=== PATIENT | female | born 1955 | race Caucasian/White ===

== ENCOUNTER 2019-08-31 09:36 | Emergency (ER) | payer OTHER ==
[2019-08-31] MEDS ORDERED: ONDANSETRON 4 MG/2 ML VIAL ONE (10:45)
[2019-08-31] MEDS ORDERED: KETOROLAC 30 MG/ML INJ ONE (10:45)
[2019-08-31 10:59] LABS: Basophils % 1.2 % (0-1.3); Hematocrit 39.8 % (36.0-45.0); Lymphocytes % 20.5 % (15.3-44.8); RBC Red Blood Cell Count 4.28 M/uL (3.86-4.86)
[2019-08-31 11:20] LABS: Albumin 3.7 g/dL (3.4-5.0); Bilirubin Direct 0.1 mg/dL (0-0.2); Bilirubin Total 0.5 mg/dL (0.2-1.0); Protein, Total 7.2 g/dL (6.4-8.2)
[2019-08-31 11:36] LABS: Urine Blood 3+ (NEG); Urine Glucose NEGATIVE (NEG); Urine Protein NEGATIVE (NEG); Urine Specific Gravity 1.015 (1.005-1.030)
[2019-08-31 12:34] LABS: Urine Bacteria <20 /HPF (<20); Urine Culture Reflex Order NOT NEEDED; Urine RBC 20-50 /HPF (NONE SEEN); Urine Yeast PRESENT (NONE SEEN)
--- NOTE | 2019-08-31 12:39 | RAD REPORT ---
EXAM DESCRIPTION: CT - Abdomen Pelvis Wo Contrast - 08/31/2019 12:28 pm CLINICAL HISTORY: L flank pain. hematuria. r/o ureterolithiasis COMPARISON: No comparisons TECHNIQUE: Axial [address] imaging of the abdomen and pelvis was performed without IV contrast. No IV contrast was given because of allergy, abnormal renal function, patient refusal or physician re quest. Oral contrast was given. All CT scans are performed using dose optimization technique as appropriate and may include automated exposure control or mA/KV adjustment according to patient size. FINDINGS: No suspicious findings in the lung bases. The liver, spleen and pancreas show no suspicious findings on non-contrast imaging. Gallbladder and b iliary tree are also without suspicious finding. Mild left-sided hydronephrosis is present secondary to a 5 mm stone in the left mid ureter. On a KUB projection this is positioned along the lateral margin L4 body inferior to the transverse process. Pa miguel has additional bilateral nonobstructing calyx calculi and a 10 millimeter parenchymal calcifica tion on the left. Multiple phleboliths are present. No significant adrenal finding. Isodense renal m asses and pyelonephritis cannot be excluded in the absence of IV contrast. No calculus in the contrac magaly urinary bladder. No dilated bowel loops or bowel wall thickening. The appendix is normal. No free air, free fluid or i nflammatory stranding. No hernia, mass or bulky lymphadenopathy. No suspicious bony findings. IMPRESSION: Mild left-sided hydronephrosis secondary to a 5 mm left mid ureter stone. Nonobstructing bilateral calyx and parenchymal calculi. Full assessment is limited is the absence of IV contrast. Pyelonephritis is not excluded on noncontra st imaging.
--- NOTE | 2019-08-31 12:55 | ER ---
Nurse's Notes [facility] Name: Carissa Ewing Age: 63 yrs Sex: Female : 1955 Arrival Date: 08/31/2019 Time: 09:41 Bed 7 Private MD: Edgardo Mcarthur Diagnosis: acute left flank pain;left mid ureter 5mm kidney stone with hydronephrosis;barbara urethritis Presentation: 08/31 09:44 Presenting complaint: Patient states: "Two weeks ago I woke up and I had blood in my urine. I went to my PCP and he told me I had a UTI, he gave me some antibiotics, and it got better, but now I woke up and have extreme back pain, have a little blood in my urine and I'm nauseated.". Transition of care: patient was not received from another setting of care. Onset of symptoms was August 31, 2019. Risk Assessment: Do you want to hurt yourself or someone else? Patient reports no desire to harm self or others. Initial Sepsis Screen: Does the patient meet any 2 criteria? No. Patient's initial sepsis screen is negative. Does the patient have a suspected source of infection? No. Patient's initial sepsis screen is negative. Care prior to arrival: None. 09:44 Method Of Arrival: Ambulatory 09:44 Acuity: SWAPNA 3 ss Historical: - Allergies: 09:47 No Known Allergies; ss - Home Meds: 09:47 losartan 25 mg oral tab 1 tab once daily [Active]; metoprolol tartrate 25 mg Oral tab 1 ss tab once daily [Active]; clopidogrel 75 mg oral tab 1 tab once daily [Active]; metformin 500 mg Oral tab 1 tab 2 times per day [Active]; atorvastatin 40 mg oral tab 1 tab once daily [Active]; aspirin 81 mg Oral TbEC 1 tab once daily [Active]; Tramadol PRN [Active]; - PMHx: 09:47 Hypertension; PRE DIABETIC; ss - PSHx: 09:47 Cardiac Stent; Knee repair; ss - Immunization history:: Adult Immunizations up to date. - Social history:: Smoking status: Patient uses tobacco products, smokes one pack cigarettes per day. - Ebola Screening: : Patient denies exposure to infectious person Patient denies travel to an Ebola-affected area in the 21 days before illness onset. Screenin:57 Abuse screen: Denies threats or abuse. Denies injuries from another. Nutritional hb screening: No deficits noted. Tuberculosis screening: No symptoms or risk factors identified. Fall Risk None identified. Assessment: 10:35 General: Appears in no apparent distress. Behavior is calm, cooperative. Pain: Pain hb currently is 4 out of 10 on a pain scale. Neuro: Level of Consciousness is awake, alert, obeys commands, Oriented to person, place, time, situation. Cardiovascular: Capillary refill < 3 seconds Patient's skin is warm and dry. Respiratory: Airway is patent Respiratory effort is even, unlabored, Respiratory pattern is regular, symmetrical. GI: No signs and/or symptoms were reported involving the gastrointestinal system. : No signs and/or symptoms were reported regarding the genitourinary system. EENT: No signs and/or symptoms were reported regarding the EENT system. Derm: Skin is pink, warm \\T\\ dry. Musculoskeletal: Reports left sided back pain. 12:00 Reassessment: Patient appears in no apparent distress at this time. Patient and/or sg family updated on plan of care and expected duration. Pain level reassessed. Patient is alert, oriented x 3, equal unlabored respirations, skin warm/dry/pink. awaiting results from urine studies at this time. Vital Signs: 09:47 BP 120 / 70; Pulse 85; Resp 15; Temp 98.0(O); Pulse Ox 97% on R/A; Weight 52.16 kg; ss Height 4 ft. 11 in. (149.86 cm); Pain 4/10; 09:47 Body Mass Index 23.23 (52.16 kg, 149.86 cm) ED Course: 09:41 Patient arrived in ED. mr 09:42 Edgardo Mcarthur MD is Private Physician. mr 09:45 Triage completed. ss 09:47 Arm band placed on right wrist. ss 10:20 Dominik Mcghee MD is Attending Physician. wa 10:22 Inserted saline lock: 20 gauge in right antecubital area, using aseptic technique. hb Blood collected. 10:35 Patient has correct armband on for positive identification. Bed in low position. Call hb light in reach. Side rails up X 1. 10:57 Jory Larios, BRITNI is Primary Nurse. hb 12:28 CT Abd/Pelvis - Without Cont (PO Contrast Only) In Process Unspecified. EDMS 12:52 Nitin Bolton MD is Referral Physician. wa 13:15 No provider procedures requiring assistance completed. IV discontinued, intact, hb bleeding controlled, No redness/swelling at site. Pressure dressing applied. Administered Medications: 10:51 Drug: TORadol 30 mg Route: IVP; Site: right antecubital; sg 11:30 Follow up: Response: No adverse reaction hb 10:51 Drug: Zofran 4 mg Route: IVP; Site: right antecubital; sg 11:30 Follow up: Response: No adverse reaction hb 13:19 Drug: DiFLUcan 150 mg Route: PO; ss 13:20 Follow up: Response: Medication administered at discharge. hb Outcome: 12:54 Discharge ordered by . wa 13:15 Discharged to home ambulatory, with family. hb 13:15 Condition: stable 13:15 Discharge instructions given to patient, family, Instructed on discharge instructions, follow up and referral plans. medication usage, Demonstrated understanding of instructions, follow-up care, medications, Prescriptions given X 3. 13:26 Patient left the ED. hb Signatures: Dispatcher [employer] EDMS Mainor Barclay RN BRITNI Crista Choe mr Yue Craig RN RN ss Baxter, Heather, RN RN Dominik Mcghee MD MD wa
--- NOTE | 2019-08-31 12:56 | EDPHYS ---
Physician Documentation [facility] Name: Carissa Ewing Age: 63 yrs Sex: Female : 1955 Arrival Date: 08/31/2019 Time: 09:41 Bed 7 Private MD: Edgardo Mcarthur ED Physician Dominik Mcghee HPI: 08/31 10:42 This 63 yrs old Female presents to ER via Ambulatory with complaints of Back wa Pain, Abdominal Pain. 10:42 The patient presents with pain that is acute, with no known mechanism of injury. The wa symptoms are located in the left low back and flank. Onset: The symptoms/episode began/occurred yesterday. The pain does not radiate. Associated signs and symptoms: Pertinent positives: hematuria, nausea, Pertinent negatives: fever, vomiting. The problem was sustained unknown cause. h/o same 2 weeks ago. given macrobid by her doctor for a dx of UTI. Modifying factors: The patient symptoms are alleviated by nothing, the patient symptoms are aggravated by nothing. Severity of symptoms: At their worst the symptoms were moderate, in the emergency department the symptoms have improved, moderately. The patient has experienced a previous episode, approximately 2 weeks ago. The patient has been recently seen by a physician: the patient's primary care provider, as noted above. Historical: - Allergies: 09:47 No Known Allergies; ss - Home Meds: 09:47 losartan 25 mg oral tab 1 tab once daily [Active]; metoprolol tartrate 25 mg Oral tab 1 ss tab once daily [Active]; clopidogrel 75 mg oral tab 1 tab once daily [Active]; metformin 500 mg Oral tab 1 tab 2 times per day [Active]; atorvastatin 40 mg oral tab 1 tab once daily [Active]; aspirin 81 mg Oral TbEC 1 tab once daily [Active]; Tramadol PRN [Active]; - PMHx: 09:47 Hypertension; PRE DIABETIC; ss - PSHx: :47 Cardiac Stent; Knee repair; ss - Immunization history:: Adult Immunizations up to date. - Social history:: Smoking status: Patient uses tobacco products, smokes one pack cigarettes per day. - Ebola Screening: : Patient denies exposure to infectious person Patient denies travel to an Ebola-affected area in the 21 days before illness onset. ROS: 10:45 Constitutional: Negative for fever, chills, and weight loss, Eyes: Negative for injury, wa pain, redness, and discharge, ENT: Negative for injury, pain, and discharge, Neck: Negative for injury, pain, and swelling, Cardiovascular: Negative for chest pain, palpitations, and edema, Respiratory: Negative for shortness of breath, cough, wheezing, and pleuritic chest pain, MS/Extremity: Negative for injury and deformity, Skin: Negative for injury, rash, and discoloration, Neuro: Negative for headache, weakness, numbness, tingling, and seizure. 10:45 Abdomen/GI: Positive for abdominal pain, nausea, of the left flank, Negative for vomiting, diarrhea. 10:45 Back: Positive for flank pain, on the left, Negative for radiated pain. 10:45 : Positive for hematuria, Negative for urinary frequency, burning with urination, difficulty urinating. 10:45 All other systems are negative. Exam: 10:46 Constitutional: This is a well developed, well nourished patient who is awake, alert, wa and in no acute distress. Head/Face: Normocephalic, atraumatic. Eyes: Pupils equal round and reactive to light, extra-ocular motions intact. Lids and lashes normal. Conjunctiva and sclera are non-icteric and not injected. Cornea within normal limits. Periorbital areas with no swelling, redness, or edema. ENT: Nares patent. No nasal discharge, no septal abnormalities noted. Tympanic membranes are normal and external auditory canals are clear. Oropharynx with no redness, swelling, or masses, exudates, or evidence of obstruction, uvula midline. Mucous membranes moist. Neck: Trachea midline, no thyromegaly or masses palpated, and no cervical lymphadenopathy. Supple, full range of motion without nuchal rigidity, or vertebral point tenderness. No Meningismus. Chest/axilla: Normal chest wall appearance and motion. Nontender with no deformity. No lesions are appreciated. Cardiovascular: Regular rate and rhythm with a normal S1 and S2. No gallops, murmurs, or rubs. Normal PMI, no JVD. No pulse deficits. Respiratory: Lungs have equal breath sounds bilaterally, clear to auscultation and percussion. No rales, rhonchi or wheezes noted. No increased work of breathing, no retractions or nasal flaring. Back: No spinal tenderness. No costovertebral tenderness. Full range of motion. Skin: Warm, dry with normal turgor. Normal color with no rashes, no lesions, and no evidence of cellulitis. MS/ Extremity: Pulses equal, no cyanosis. Neurovascular intact. Full, normal range of motion. Neuro: Awake and alert, GCS 15, oriented to person, place, time, and situation. Cranial nerves II-XII grossly intact. Motor strength 5/5 in all extremities. Sensory grossly intact. Cerebellar exam normal. Normal gait. Psych: Awake, alert, with orientation to person, place and time. Behavior, mood, and affect are within normal limits. 10:46 Abdomen/GI: Inspection: abdomen appears normal, Bowel sounds: normal, in all quadrants, Palpation: mild abdominal tenderness, in the left lower quadrant. Vital Signs: 09:47 BP 120 / 70; Pulse 85; Resp 15; Temp 98.0(O); Pulse Ox 97% on R/A; Weight 52.16 kg; ss Height 4 ft. 11 in. (149.86 cm); Pain 4/10; 09:47 Body Mass Index 23.23 (52.16 kg, 149.86 cm) MDM: 10:20 Patient medically screened. ok 10:47 Differential diagnosis: Pyelonephritis Ureterolithiasis UTI. ok 10:47 Special discussion: suspect ureterolithiasis. will eval to r/o. will treat pain. will wa reassess. 11:47 Data reviewed: vital signs, nurses notes, lab test result(s). Test interpretation: by ok ED physician or midlevel provider: labs noted for decreased GFR at 52. 3 blood in UA. 12:51 Test interpretation: by ED physician or midlevel provider: UA noted for yeast. CT noted wa for L mid ureter 5 mm stone with mild hydroneph.. ED course: pain-free at time of d/c. will treat yeast with a dose of diflucan. will cover with toradol and zofran. flomax for kidney stone. close f/u with urology. 08/31 10:31 Order name: Basic Metabolic Panel; Complete Time: 11:46 ok 08/31 10:31 Order name: CBC with Diff; Complete Time: 11:47 ok 08/31 10:31 Order name: Creatinine for Radiology; Complete Time: 11:46 08/31 10:31 Order name: Hepatic Function; Complete Time: 11:47 08/31 10:31 Order name: Lipase; Complete Time: 11:47 08/31 10:31 Order name: Urine Microscopic Only; Complete Time: 12:42 08/31 10:31 Order name: IV Saline Lock; Complete Time: 10:44 08/31 10:31 Order name: Labs collected and sent; Complete Time: 10:44 08/31 10:31 Order name: Urine Dipstick-Ancillary (obtain specimen); Complete Time: 11:32 08/31 10:42 Order name: CT Abd/Pelvis - Without Cont (PO Contrast Only); Complete Time: 12:42 08/31 11:31 Order name: Urine Dipstick--Ancillary (enter results); Complete Time: 11:46 sp Administered Medications: 10:51 Drug: TORadol 30 mg Route: IVP; Site: right antecubital; sg 11:30 Follow up: Response: No adverse reaction hb 10:51 Drug: Zofran 4 mg Route: IVP; Site: right antecubital; sg 11:30 Follow up: Response: No adverse reaction hb 13:19 Drug: DiFLUcan 150 mg Route: PO; ss 13:20 Follow up: Response: Medication administered at discharge. hb Disposition: 08/31/19 12:54 Discharged to Home. Impression: acute left flank pain, left mid ureter 5mm kidney stone with hydronephrosis, barbara urethritis. - Condition is Stable. - Discharge Instructions: Vaginal Yeast Infection, Adult, Kidney Stones, [id number]. - Prescriptions for Flomax 0.4 mg Oral Capsule, Sust. Release 24 hr - take 1 capsule by ORAL route once daily for 7 days 1/2 hour following the same meal each day; 7 capsule. Zofran 4 mg Oral Tablet - take 1 tablet by ORAL route every 12 hours As needed; 20 tablet. ketorolac 10 mg Oral tablet - take 1 tablet by ORAL route every 8 hours not to exceed 40 mg in 24hrs; 20 tablet. - Work release form, Medication Reconciliation Form, Thank You Letter, Antibiotic Education, Prescription Opioid Use form. - Follow up: Nitin Bolton MD; When: 2 - 3 days; Reason: Recheck today's complaints. - Problem is new. - Symptoms have improved. - Notes: take the medication as needed as prescribed. please follow up with Dr. Bolton, Urologist, for the kidney stone to make sure it passes. return here immediately for severe, intolerable pain Signatures: Dispatcher [employer] EDMainor Durham, RN RN Yue Craig RN RN Jory Larios RN RN [facility] HospitalDominik MD MD wa Corrections: (The following items were deleted from the chart) 13:26 12:54 08/31/2019 12:54 Discharged to Home. Impression: acute left flank pain; left mid hb ureter 5mm kidney stone with hydronephrosis; barbara urethritis. Condition is Stable. Forms are Medication Reconciliation Form, Thank You Letter, Antibiotic Education, Prescription Opioid Use. Follow up: Nitin Bolton; When: 2 - 3 days; Reason: Recheck today's complaints. Problem is new. Symptoms have improved. wa
[2019-08-31] MEDS ORDERED: FLUCONAZOLE 100 MG TAB ONE (13:14)
[2019-08-31 13:46] VITALS: BP 120/70; TEMP 98; O2SAT 97
--- OUTSIDE RECORDS SUMMARY | 2019-09-06 21:02 | XMS REPORT ---
:1955 [facility] Address [address] [place] [address] Care Team Providers Name Role Phone JOSEFA THOMAS Unavailable Unavailable Problems This patient has no known problems. Allergies, Adverse Reactions, Alerts This patient has no known allergies or adverse reactions. Medications This patient has no known medications. Results Test Description Test Time Test Comments Text Results Atomic Results Result Comments CBC (HEMOGRAM ONLY) 2017-08-07 10:43:00 Test Item Value Reference Range Comments WHITE BLOOD CELL COUNT (BEAKER) (test rjjy=313) 9.0 K/ L 3.5-10.5 RED BLOOD CELL COUNT (BEAKER) (test xlwh=459) 3.85 M/ L 3.93-5.22 HEMOGLOBIN (BEAKER) (test ehic=133) 11.8 GM/DL 11.2-15.7 HEMATOCRIT (BEAKER) (test wuxi=529) 36.2 % 34.1-44.9 MEAN CORPUSCULAR VOLUME (BEAKER) (test qene=558) 94.0 fL 79.4-94.8 MEAN CORPUSCULAR HEMOGLOBIN (BEAKER) (test bbsl=127) 30.6 pg 25.6-32.2 MEAN CORPUSCULAR HEMOGLOBIN CONC (BEAKER) (test lxot=403) 32.6 GM/DL 32.2- 35.5 RED CELL DISTRIBUTION WIDTH (BEAKER) (test mptg=106) 13.2 % 11.7-14.4 PLATELET COUNT (BEAKER) (test abbi=260) 319 K/CU MM 150-450 MEAN PLATELET VOLUME (BEAKER) (test xddq=648) 9.4 fL 9.4-12.3 NUCLEATED RED BLOOD CELLS (BEAKER) (test zmce=088) 0 /100 WBC 0-0 [id number] 05:05:00 Test Item Value Reference Range Comments MAGNESIUM (BEAKER) (test uwcd=653) 1.9 mg/dL 1.6-2.6 BASIC METABOLIC [id number] 05:05:00 Test Item Value Reference Range Comments SODIUM (BEAKER) (test 139 meq/L 136-145 pytg=907) POTASSIUM (BEAKER) (test 3.8 meq/L 3.5-5.1 flye=952) CHLORIDE (BEAKER) (test 110 meq/L 98-107 trqy=996) CO2 (BEAKER) (test 23 meq/L 22-29 xpml=564) BLOOD UREA NITROGEN 15 mg/dL 7-21 (BEAKER) (test yczi=431) CREATININE (BEAKER) (test 0.66 mg/dL 0.57-1.25 cxpf=645) GLUCOSE RANDOM (BEAKER) 92 mg/dL 70-105 (test hllb=202) CALCIUM (BEAKER) (test 8.5 mg/dL 8.4-10.2 vkdt=507) EGFR (BEAKER) (test 92 mL/min/1.73 sq m ESTIMATED GFR IS NOT wght=0720) ACCURATE CREATININE CLEARANCE IN PREDICTING GLOMERULAR FILTRATION RATE. ESTIMATED GFR IS NOT APPLICABLE FOR DIALYSIS PATIENTS. CBC (HEMOGRAM ONLY)2017-08-07 04:31:00 Test Item Value Reference Range Comments WHITE BLOOD CELL COUNT (BEAKER) (test hzmm=032) 8.1 K/ L 3.5-10.5 RED BLOOD CELL COUNT (BEAKER) (test csud=990) 3.82 M/ L 3.93-5.22 HEMOGLOBIN (BEAKER) (test jskn=313) 11.5 GM/DL 11.2-15.7 HEMATOCRIT (BEAKER) (test kwpt=203) 36.2 % 34.1-44.9 MEAN CORPUSCULAR VOLUME (BEAKER) (test zjrs=495) 94.8 fL 79.4-94.8 MEAN CORPUSCULAR HEMOGLOBIN (BEAKER) (test 30.1 pg 25.6-32.2 odyk=855) MEAN CORPUSCULAR HEMOGLOBIN CONC (BEAKER) (test 31.8 GM/DL 32.2-35.5 zntu=188) RED CELL DISTRIBUTION WIDTH (BEAKER) (test 13.1 % 11.7-14.4 bkcx=591) PLATELET COUNT (BEAKER) (test ckec=632) 312 K/CU MM 150-450 MEAN PLATELET VOLUME (BEAKER) (test fhpi=179) 9.3 fL 9.4-12.3 NUCLEATED RED BLOOD CELLS (BEAKER) (test 0 /100 WBC 0-0 sfla=194) [id number] 19:27:00 Test Item Value Reference Range Comments ACTIVATED CLOTTING TIME [address] [facility] [id number] (BEAKER) (test uolp=714) [facility] [id number] TROPONIN [id number] 11:56:00 Test Item Value Reference Range Comments TROPONIN I (BEAKER) (test vpqz=743) 0.56 ng/mL 0.00-0.03 Troponin I (TnI) levels must be interpreted in the context of the presenting symptoms and the clinical findings. Elevated TnI levels indicate myocardial damage, but are not specific for ischemic heart disease. Elevated TnI levels are seen in patients with other cardiac conditions (including myocarditis and congestive heart failure), and slight TnI elevations occur in patients with other conditions, including sepsis, renal failure, acidosis, acute neurological disease, and persistent tachyarrhythmia.CREATINE KINASE (CK), TOTAL AND [id number] 11:52:00 Test Item Value Reference Range Comments CREATINE KINASE TOTAL (BEAKER) (test nhly=059) 78 U/L 29-200 CREATINE KINASE-MB (BEAKER) (test vcgq=542) 7.6 ng/mL 0.0-6.6 CREATINE KINASE-MB INDEX (BEAKER) (test lvff=975) 9.7 % CK-MB Reference Range:<6.7 Normal6.7-10.0 Borderline>10.0 [id number] 11:51:00 Test Item Value Reference Range Comments PARTIAL THROMBOPLASTIN TIME (BEAKER) (test 53.4 seconds 22.5-36.0 epns=164) HEMOGLOBIN [id number] 10:51:00 Test Item Value Reference Range Comments HEMOGLOBIN A1C (BEAKER) (test qeym=314) 6.2 % 4.3-6.1 TSH/FREE T4 IF [id number] 05:12:00 Test Item Value Reference Range Comments THYROID STIMULATING HORMONE (BEAKER) (test 2.86 uIU/mL 0.35-4.94 zjwd=831) TROPONIN [id number] 05:08:00 Test Item Value Reference Range Comments TROPONIN I (BEAKER) (test urod=650) 0.74 ng/mL 0.00-0.03 Troponin I (TnI) levels must be interpreted in the context of the presenting symptoms and the clinical findings. Elevated TnI levels indicate myocardial damage, but are not specific for ischemic heart disease. Elevated TnI levels are seen in patients with other cardiac conditions (including myocarditis and congestive heart failure), and slight TnI elevations occur in patients with other conditions, including sepsis, renal failure, acidosis, acute neurological disease, and persistent tachyarrhythmia.CREATINE KINASE (CK), TOTAL AND [id number] 04:46:00 Test Item Value Reference Range Comments CREATINE KINASE TOTAL (BEAKER) (test lxks=298) 90 U/L 29-200 CREATINE KINASE-MB (BEAKER) (test hetn=174) 10.2 ng/mL 0.0-6.6 CREATINE KINASE-MB INDEX (BEAKER) (test qinv=982) 11.3 % CK-MB Reference Range:<6.7 Normal6.7-10.0 Borderline>10.0 [id number] 04:40:00 Test Item Value Reference Range Comments MAGNESIUM (BEAKER) (test cken=560) 2.0 mg/dL 1.6-2.6 BASIC METABOLIC [id number] 04:40:00 Test Item Value Reference Range Comments SODIUM (BEAKER) (test 140 meq/L 136-145 fpgt=874) POTASSIUM (BEAKER) (test 3.9 meq/L 3.5-5.1 tehb=027) CHLORIDE (BEAKER) (test 108 meq/L 98-107 okow=102) CO2 (BEAKER) (test 23 meq/L 22-29 jkkf=530) BLOOD UREA NITROGEN 16 mg/dL 7-21 (BEAKER) (test ymya=443) CREATININE (BEAKER) (test 0.74 mg/dL 0.57-1.25 bumt=985) GLUCOSE RANDOM (BEAKER) 100 mg/dL 70-105 (test kjov=057) CALCIUM (BEAKER) (test 9.2 mg/dL 8.4-10.2 pmsa=127) EGFR (BEAKER) (test 80 mL/min/1.73 sq m ESTIMATED GFR IS NOT slqr=5817) ACCURATE CREATININE CLEARANCE IN PREDICTING GLOMERULAR FILTRATION RATE. ESTIMATED GFR IS NOT APPLICABLE FOR DIALYSIS PATIENTS. [id number] 04:31:00 Test Item Value Reference Range Comments PARTIAL THROMBOPLASTIN TIME (BEAKER) (test 45.2 seconds 22.5-36.0 ebqv=175) CBC (HEMOGRAM ONLY)2017-08-06 04:27:00 Test Item Value Reference Range Comments WHITE BLOOD CELL COUNT (BEAKER) (test mehn=159) 10.3 K/ L 3.5-10.5 RED BLOOD CELL COUNT (BEAKER) (test pzwj=602) 4.37 M/ L 3.93-5.22 HEMOGLOBIN (BEAKER) (test oovb=206) 13.5 GM/DL 11.2-15.7 HEMATOCRIT (BEAKER) (test vyfl=918) 41.0 % 34.1-44.9 MEAN CORPUSCULAR VOLUME (BEAKER) (test vevu=917) 93.8 fL 79.4-94.8 MEAN CORPUSCULAR HEMOGLOBIN (BEAKER) (test 30.9 pg 25.6-32.2 jktf=529) MEAN CORPUSCULAR HEMOGLOBIN CONC (BEAKER) (test 32.9 GM/DL 32.2-35.5 scef=833) RED CELL DISTRIBUTION WIDTH (BEAKER) (test 13.2 % 11.7-14.4 wovn=687) PLATELET COUNT (BEAKER) (test vrra=003) 362 K/CU MM 150-450 MEAN PLATELET VOLUME (BEAKER) (test cbwi=200) 9.2 fL 9.4-12.3 NUCLEATED RED BLOOD CELLS (BEAKER) (test 0 /100 WBC 0-0 hiuh=230) URINALYSIS W/ REFLEX URINE [id number] 00:07:00 Test Item Value Reference Range Comments COLOR (BEAKER) (test zayb=549) Yellow CLARITY (BEAKER) (test avub=582) Clear SPECIFIC GRAVITY UA (BEAKER) (test lbdn=160) 1.014 1.001-1.035 PH UA (BEAKER) (test czvm=748) 5.5 5.0-8.0 PROTEIN UA (BEAKER) (test hqdc=927) Negative Negative GLUCOSE UA (BEAKER) (test rlxz=686) Negative Negative KETONES UA (BEAKER) (test unzd=665) Negative Negative BILIRUBIN UA (BEAKER) (test nypx=017) Negative Negative BLOOD UA (BEAKER) (test yrce=967) Negative Negative NITRITE UA (BEAKER) (test iknc=943) Negative Negative LEUKOCYTE ESTERASE UA (BEAKER) (test aeaj=829) Negative Negative UROBILINOGEN UA (BEAKER) (test wtug=846) 0.2 mg/dL 0.2-1.0 RBC UA (BEAKER) (test wpcw=749) 1 /HPF WBC UA (BEAKER) (test eydw=005) < /HPF BACTERIA (BEAKER) (test eyvb=782) Rare MUCUS (BEAKER) (test deln=5126) Occasional SQUAMOUS EPITHELIAL (BEAKER) (test fcxo=143) < /HPF AMORPHOUS CRYSTALS (BEAKER) (test kbxm=7019) Rare SOURCE(BEAKER) (test ocmx=2854) TROPONIN [id number] 22:06:00 Test Item Value Reference Range Comments TROPONIN I (BEAKER) (test lhdg=567) 0.86 ng/mL 0.00-0.03 Troponin I (TnI) levels must be interpreted in the context of the presenting symptoms and the clinical findings. Elevated TnI levels indicate myocardial damage, but are not specific for ischemic heart disease. Elevated TnI levels are seen in patients with other cardiac conditions (including myocarditis and congestive heart failure), and slight TnI elevations occur in patients with other conditions, including sepsis, renal failure, acidosis, acute neurological disease, and persistent tachyarrhythmia.CREATINE KINASE (CK), TOTAL AND [id number] 22:04:00 Test Item Value Reference Range Comments CREATINE KINASE TOTAL (BEAKER) (test cqdv=821) 103 U/L 29-200 CREATINE KINASE-MB (BEAKER) (test rvve=679) 12.0 ng/mL 0.0-6.6 CREATINE KINASE-MB INDEX (BEAKER) (test erzo=168) 11.7 % CK-MB Reference Range:<6.7 Normal6.7-10.0 Borderline>10.0 [id number] 21:58:00 Test Item Value Reference Range Comments PHOSPHORUS (BEAKER) (test hfem=593) 3.0 mg/dL 2.3-4.7 [id number] 21:58:00 Test Item Value Reference Range Comments MAGNESIUM (BEAKER) (test tycm=581) 2.2 mg/dL 1.6-2.6 COMPREHENSIVE METABOLIC [id number] 21:58:00 Test Item Value Reference Range Comments TOTAL PROTEIN (BEAKER) 7.5 gm/dL 6.0-8.3 (test gfcw=678) ALBUMIN (BEAKER) (test 3.9 g/dL 3.5-5.0 tatx=3221) ALKALINE PHOSPHATASE 80 U/L 40-150 (BEAKER) (test zqvm=806) BILIRUBIN TOTAL (BEAKER) 0.4 mg/dL 0.2-1.2 (test ksst=979) SODIUM (BEAKER) (test 138 meq/L 136-145 ixxl=799) POTASSIUM (BEAKER) (test 4.0 meq/L 3.5-5.1 kxps=585) CHLORIDE (BEAKER) (test 106 meq/L 98-107 dheo=608) CO2 (BEAKER) (test 22 meq/L 22-29 hnmk=279) BLOOD UREA NITROGEN 11 mg/dL 7-21 (BEAKER) (test mipc=980) CREATININE (BEAKER) (test 0.73 mg/dL 0.57-1.25 jsro=304) GLUCOSE RANDOM (BEAKER) 123 mg/dL 70-105 (test vxrx=154) CALCIUM (BEAKER) (test 9.7 mg/dL 8.4-10.2 wjtl=507) AST (SGOT) (BEAKER) (test 19 U/L 5-34 yzat=521) ALT (SGPT) (BEAKER) (test 16 U/L 6-55 dfwo=067) EGFR (BEAKER) (test 82 mL/min/1.73 sq m ESTIMATED GFR IS NOT sxbq=8164) ACCURATE CREATININE CLEARANCE IN PREDICTING GLOMERULAR FILTRATION RATE. ESTIMATED GFR IS NOT APPLICABLE FOR DIALYSIS PATIENTS. BASIC METABOLIC [id number] 21:58:00 Test Item Value Reference Range Comments SODIUM (BEAKER) (test 138 meq/L 136-145 rslb=287) POTASSIUM (BEAKER) (test 4.0 meq/L 3.5-5.1 bpvq=564) CHLORIDE (BEAKER) (test 106 meq/L 98-107 mmnz=927) CO2 (BEAKER) (test 22 meq/L 22-29 vlwa=944) BLOOD UREA NITROGEN 11 mg/dL 7-21 (BEAKER) (test byks=898) CREATININE (BEAKER) (test 0.73 mg/dL 0.57-1.25 zktb=461) GLUCOSE RANDOM (BEAKER) 123 mg/dL 70-105 (test xazc=047) CALCIUM (BEAKER) (test 9.7 mg/dL 8.4-10.2 lapl=956) EGFR (BEAKER) (test 82 mL/min/1.73 sq m ESTIMATED GFR IS NOT zzik=7736) ACCURATE CREATININE CLEARANCE IN PREDICTING GLOMERULAR FILTRATION RATE. ESTIMATED GFR IS NOT APPLICABLE FOR DIALYSIS PATIENTS. PROTHROMBIN TIME/[id number] 21:54:00 Test Item Value Reference Range Comments PROTIME (BEAKER) (test zfue=809) 12.9 seconds 11.7-14.7 INR (BEAKER) (test zqqo=196) 1.0 <=5.9 RECOMMENDED COUMADIN/WARFARIN INR THERAPY RANGESSTANDARD DOSE: 2.0 - 3.0 Includes: PROPHYLAXIS forvenous thrombosis, systemic embolization; TREATMENT for venous thrombosis and/or pulmonary embolus.HIGH RISK: Target INR is 2.5-3.5 for patients with mechanical heart valves.Within 24 hours, if on [id number] 21:54:00 Test Item Value Reference Range Comments PARTIAL THROMBOPLASTIN TIME (BEAKER) (test 32.5 seconds 22.5-36.0 negd=695) Within 24 hours, if on CoumadinCBC W/PLT COUNT & AUTO [id number] 21:45:00 Test Item Value Reference Range Comments WHITE BLOOD CELL COUNT (BEAKER) (test ouou=379) 12.5 K/ L 3.5-10.5 RED BLOOD CELL COUNT (BEAKER) (test ygnr=088) 4.68 M/ L 3.93-5.22 HEMOGLOBIN (BEAKER) (test pbcv=025) 14.4 GM/DL 11.2-15.7 HEMATOCRIT (BEAKER) (test sitp=870) 43.5 % 34.1-44.9 MEAN CORPUSCULAR VOLUME (BEAKER) (test fzbe=926) 92.9 fL 79.4-94.8 MEAN CORPUSCULAR HEMOGLOBIN (BEAKER) (test 30.8 pg 25.6-32.2 uykq=509) MEAN CORPUSCULAR HEMOGLOBIN CONC (BEAKER) (test 33.1 GM/DL 32.2-35.5 feag=681) RED CELL DISTRIBUTION WIDTH (BEAKER) (test 13.2 % 11.7-14.4 bgka=935) PLATELET COUNT (BEAKER) (test cecq=116) 401 K/CU MM 150-450 MEAN PLATELET VOLUME (BEAKER) (test wrkf=307) 9.2 fL 9.4-12.3 NUCLEATED RED BLOOD CELLS (BEAKER) (test 0 /100 WBC 0-0 lvpa=294) NEUTROPHILS RELATIVE PERCENT (BEAKER) (test 70 % wgnf=993) LYMPHOCYTES RELATIVE PERCENT (BEAKER) (test 22 % etdy=069) MONOCYTES RELATIVE PERCENT (BEAKER) (test 6 % ojgp=866) EOSINOPHILS RELATIVE PERCENT (BEAKER) (test 2 % kzaq=812) BASOPHILS RELATIVE PERCENT (BEAKER) (test 0 % malg=065) NEUTROPHILS ABSOLUTE COUNT (BEAKER) (test 8.72 K/ L 1.56-6.13 ngtz=527) LYMPHOCYTES ABSOLUTE COUNT (BEAKER) (test 2.71 K/ L 1.18-3.74 qqeu=166) MONOCYTES ABSOLUTE COUNT (BEAKER) (test 0.79 K/ L 0.24-0.36 lpco=440) EOSINOPHILS ABSOLUTE COUNT (BEAKER) (test 0.21 K/ L 0.04-0.36 dxqz=078) BASOPHILS ABSOLUTE COUNT (BEAKER) (test 0.05 K/ L 0.01-0.08 kenn=377) IMMATURE GRANULOCYTES-RELATIVE PERCENT (BEAKER) 0 % 0-1 (test lgtl=3107) CBC (HEMOGRAM ONLY)2017-08-05 21:42:00 Test Item Value Reference Range Comments WHITE BLOOD CELL COUNT (BEAKER) (test tduq=077) 12.5 K/ L 3.5-10.5 RED BLOOD CELL COUNT (BEAKER) (test lrfo=076) 4.68 M/ L 3.93-5.22 HEMOGLOBIN (BEAKER) (test evzu=551) 14.4 GM/DL 11.2-15.7 HEMATOCRIT (BEAKER) (test vusu=630) 43.5 % 34.1-44.9 MEAN CORPUSCULAR VOLUME (BEAKER) (test ciyt=571) 92.9 fL 79.4-94.8 MEAN CORPUSCULAR HEMOGLOBIN (BEAKER) (test 30.8 pg 25.6-32.2 fbwl=523) MEAN CORPUSCULAR HEMOGLOBIN CONC (BEAKER) (test 33.1 GM/DL 32.2-35.5 wczx=499) RED CELL DISTRIBUTION WIDTH (BEAKER) (test 13.2 % 11.7-14.4 utdp=108) PLATELET COUNT (BEAKER) (test njnq=552) 401 K/CU MM 150-450 MEAN PLATELET VOLUME (BEAKER) (test iiku=216) 9.2 fL 9.4-12.3 NUCLEATED RED BLOOD CELLS (BEAKER) (test 0 /100 WBC 0-0 dsaz=050)
== END 2019-08-31 13:26 | disposition home or self-care (01) ==
LOC: ER 09:36
DX: N13.2 Hydronephrosis with renal and ureteral calculous obstruction (principal); B37.41 Candidal cystitis and urethritis; I10 Essential (primary) hypertension; R73.03 Prediabetes; F17.210 Nicotine dependence, cigarettes, uncomplicated; Z79.82 Long term (current) use of aspirin
CPT/HCPCS: 85025; 80048; 36415; 80076; 83690; 74176; 96375; 96374; 99284; J2405; 81003; 81015

== ENCOUNTER 2023-03-29 18:35 | Emergency (ER) | payer BC ==
--- OUTSIDE RECORDS SUMMARY | 2023-03-29 18:38 | XMS REPORT | Continuity of Care Document ---
:1955 Author Organization [facility] t Address [address] [facility]. [place]. [address] [place] [address] Care Team Providers Name Role Phone Ally Hughes Attending Clinician Unavailable JOSEFA THOMAS Attending Clinician Unavailable JOSEFA THOMAS Admitting Clinician Unavailable Payers Payer Name Policy Type Policy Number Effective Date Expiration Date S ource Problems Condition Condition Condition Status Onset Resolution Last Treating Co mments Source Name Details Category Date Date Treatment Clinician Date Pre-diabet Pre-diabet Disease Recurre 2016-[address] [facility] [address] Tobacco Tobacco Disease Recurre 2016-[address] [facility] [address] abuse abuse [facility] [address] Diastolic Diastolic Disease Recurre 2016-[address] dysfunctio dysfunctio nce 2-07 Anjali kes n n 00:00: [address] NSTEMI NSTEMI Disease Recurre 2016-[address] ([facility]-ST [facility] elevated elevated 00:00: Medica l myocardial myocardial 00 Ce nter infarction infarction ) ) Allergies, Adverse Reactions, Alerts Allergy Allergy Status Severity Reaction(s) Onset Inactive Treating Comm ents Source Name Type Date Date Clinician No Known DA [facility] 00[facility]: [address] No Known DA [facility] 00:[facility]: [address] NO KNOWN Allergy Active [facility] Social History Social Habit Start Date Stop Date Quantity Comments Source History of tobacco Smokes tobacco [facility] Cigarettes smoked 2017-08-06 2017-08-[address] [facility] [address] [facility] current (pack per 00:00:00 00:00:00 [facility] day) - Reported Tobacco use and 2017-08-06 2017-08-06 Smokeless tobacco [facility] exposure 00:00[facility]00 00:00:00 non-user [facility] Center Sex Assigned At [address] [facility] Anjali davidsons 00:00:00 00:00:00 [facility] Center Smoking Status Start Date Stop Date Source Smokes tobacco daily 2017-08-06 00:00:00 [facility] Medications Ordered Filled Start Stop Current Ordering Indication Dosage Frequency Signature Comments Components Source Medication Medication Date Date Medication? Clinician (SIG) Name Name ticagrelor 2016-10 Yes 90mg Q.5D Take 1 [facility] ([facility] 0-11 tablet (90 Justin es 90 mg Tab 00:00: mg total) Med ical tablet 00 by mouth 2 Center (two) times daily. Procedures This patient has no known procedures. Encounters Start End Encounter Admission Attending Care Care Encounter Source Date/Time Date/Time Type Type Clinicians Facility Department ID 2021-01-06 2021-01-06 Outpatient DAVEY HughesU [facility] [id number] [facility] [facility] 17:18:15 17:18:[address] Results Test Description Test Time Test Comments Results Result Comments Source BASIC METABOLIC PANEL 2021-01-07 07:15:00 Test Item Value Reference Range Interpretation Comme nts SODIUM (test code = NA) 138 MMOL/L 137-145 N POTASSIUM (test code = K) 4.2 MMOL/L 3.5-5.1 N CHLORIDE (test code = CL) 105 MMOL/L 98-107 N CARBON DIOXIDE (test code = CO2) 28 MMOL/L 22-30 N GLUCOSE (test code = GLU) 129 MG/DL 74-106 H BLOOD UREA NITROGEN (test code = 17 MG/DL 7-17 N BUN) GLOMERULAR FILTRATION RATE (test > 60 Reporting units: ml/min/1.73 code = GFR) m2 (Modified RD Formula)Referen ce Range: > or = 60 ml/min/1.7 3 m2 CREATININE (test code = CREAT) 0.50 MG/DL 0.52-1.04 L CALCIUM (test code = CA) 9.3 MG/DL 8.4-10.2 N Comments to Information Consultant: NURSE WILL BRING SPECIMEN TO LABIs this a LINE draw? N LIPID PROFILE (CORONARY RISK)2021-01-07 07:15:00 Test Item Value Reference Range Interpretation Comments TRIGLYCERIDES (test 198 MG/DL TRIGLYCE RIDES code = TRIG) REFERENCE RANGE:Normal: < 150 mg/dLBorderline High: 150-199 mg/dLHi gh: 200-499 mg/dLVe ry High: >=500 mg/ dL CHOLESTEROL (test code 142 MG/DL <200 = CHOL) HDL CHOLESTEROL (test 41 MG/DL 40-59 N code = HDL) LIPOPROTEIN LDL (test 66 MG/DL 0-99 N OPTIM AL.........<100 code = LDL) mg/dLNEAR OPTIMAL/ABOVE OPTIMAL........ .100-12 9 mg/dL BORDER LINE HIGH.........13 0-159 mg/dL HIGH.........16 0-189 mg/dL VERY HIGH.........>/ = 190 mg/dL Comments to Information Consultant: NURSE WILL BRING SPECIMEN TO LABIs this a LINE draw? N [id number] 07:15:00 Test Item Value Reference Range Interpretation Comments MAGNESIUM (test code = MAG) 2.1 MG/DL 1.6-2.3 N Comments to Information Consultant: NURSE WILL BRING SPECIMEN TO LABIs this a LINE draw? N BASIC METABOLIC [id number] 07:04:00 Test Item Value Reference Range Interpretation Comments SODIUM (test code = 138 MMOL/L 137-145 N NA) POTASSIUM (test code = 4.2 MMOL/L 3.5-5.1 N K) CHLORIDE (test code = 105 MMOL/L 98-107 N CL) CARBON DIOXIDE (test 28 MMOL/L 22-30 N code = CO2) GLUCOSE (test code = 129 MG/DL 74-106 H GLU) BLOOD UREA NITROGEN 17 MG/DL 7-17 N (test code = BUN) GLOMERULAR FILTRATION > 60 Report ing units: RATE (test code = GFR) ml/mi n/1.73 m2 (Modified MDRD Formula)Referen ce Range: > or = 6 0 ml/min/1.73 m2 CREATININE (test code 0.50 MG/DL 0.52-1.04 L = CREAT) CALCIUM (test code = 9.3 MG/DL 8.4-10.2 N CA) Comments to Information Consultant: NURSE WILL BRING SPECIMEN TO LABIs this a LINE draw? N LIPID PROFILE (CORONARY RISK)2021-01-07 07:04:00 Test Item Value Reference Range Interpretation Comments TRIGLYCERIDES (test 198 MG/DL TRIGLYCE RIDES code = TRIG) REFERENCE RANGE:Normal: < 150 mg/dLBorderline High: 150-199 mg/dLHi gh: 200-499 mg/dLVe ry High: >=500 mg/ dL CHOLESTEROL (test code 142 MG/DL <200 = CHOL) HDL CHOLESTEROL (test 41 MG/DL 40-59 N code = HDL) LIPOPROTEIN LDL (test MG/DL 0-99 code = LDL) Comments to Information Consultant: NURSE WILL BRING SPECIMEN TO LABIs this a LINE draw? N [id number] 07:04:00 Test Item Value Reference Range Interpretation Comments MAGNESIUM (test code = MAG) 2.1 MG/DL 1.6-2.3 N Comments to Information Consultant: NURSE WILL BRING SPECIMEN TO LABIs this a LINE draw? N PROTHROMBIN [id number] 06:53:00 Test Item Value Reference Range Interpretation Comments PROTHROMBIN TIME PATIENT 10.3 9.5-12.7 N (test code = PTP) INTERNATIONAL NORMAL RATIO 0.9 0.86-1.14 N T he INR is to be used (test code = INR) only for m onitoring oral anticoagulantth erapy. INDICATION INR VALUE ------- ------- -----1. Prophylaxis, de ep venous thrombos is, including high risk surgery. 2.0 - 3.0 2. Prophylaxis, de ep venous thrombos is, hip surgery, treatm ent for deep venous thr ombosis or pulmonary prevention of s ystemic embolism in pat ients with valvular h eart disease, atrial fibrillation, t issue heart valve, or acute myocardial infa rction. 2.0 - 3.0 3. Mechanical pros thesis heart valves, recurrent syste sharon embolism. 3.0 - 4.5 Comments to Information Consultant: NURSE WILL BRING SPECIMEN TO LABComments to Information Consultant: NURSE WILLBRING SPECIMEN TO LABPTT [id number] 06:53:00 Test Item Value Reference Range Interpretation Comments PTT ACTIVATED (test code = APTT) 30.9 SECONDS 25.1-36.5 N Comments to Information Consultant: NURSE WILL BRING SPECIMEN TO LABComments to Information Consultant: NURSE WILLBRING SPECIMEN TO LABCBC W/AUTO [id number] 06:44:00 Test Item Value Reference Range Interpretation Comments WHITE BLOOD CELL (test code = 10.5 K/MM3 3.8-9.8 H WBC) RED BLOOD CELL (test code = 4.40 M/MM3 3.58-4.97 N RBC) HEMOGLOBIN (test code = HGB) 14.0 G/DL 11.2-14.9 N HEMATOCRIT (test code = HCT) 43.2 % 33.2-43.5 N MEAN CELL VOLUME (test code = 98 fL 80.7-99.1 N MCV) MEAN CELL HGB (test code = MCH) 31.8 pg 27.0-34.1 N MEAN CELL HGB CONCETRATION 32.4 % 32.2-35.7 N (test code = MCHC) RED CELL DISTRIBUTION WIDTH 13.4 % 12.1-15.2 N (test code = RDW) PLATELET COUNT (test code = 394 K/MM3 129-368 H PLT) MEAN PLATELET VOLUME (test code 9.2 fl 7.4-10.4 N = MPV) NEUTROPHIL % (test code = NT%) 68.7 % 43-75 N IMMATURE GRANULOCYTE % (test 0.4 % 0.0-2.0 N code = IG%) LYMPHOCYTE % (test code = LY%) 21.5 % 14-44 N MONOCYTE % (test code = MO%) 6.5 % 4-13 N EOSINOPHIL % (test code = EO%) 2.3 % 0-6 N BASOPHIL % (test code = BA%) 0.6 % 0-2 N NUCLEATED RBC % (test code = 0.0 % 0-1.0 N NRBC%) NEUTROPHIL # (test code = NT#) 7.21 K/mm3 2.0-7.6 N IMMATURE GRANULOCYTE # (test 0.04 x10 3/uL 0-0.03 H code = IG#) LYMPHOCYTE # (test code = LY#) 2.25 K/mm3 1.0-3.8 N MONOCYTE # (test code = MO#) 0.68 K/mm3 0.1-0.8 N EOSINOPHIL # (test code = EO#) 0.24 K/mm3 0.0-0.2 H BASOPHIL # (test code = BA#) 0.06 K/mm3 0.0-0.2 N NUCLEATED RBC # (test code = 0.00 K/mm3 0.0-0.1 N NRBC#) Comments to Information Consultant: NURSE WILL BRING SPECIMEN TO LABIs this a LINE draw? N COVID 19 Asymptomatic IH [id number] 06:07:00 Test Item Value Reference Range Interpretation Comments COVID 19 NEGATIVE Negative "Negative resul ts from Asymptomatic IH AG patients with symptom (test code = onset beyondfiv e days, COVNONPUIAG) should be treat ed as presumptive, andconfirmation with a molecular assay , if necessary forpa tient management may be performed. Nega tive results do notr ule out COVID-19 and sh ould not be used as the sole basisfor treatm ent or patient managem ent decisions, includinginfect ion control decisio ns. Negative result s should beconsidered in the context of a pa tients recent exposure s,history, and the presenc e of clinical signs and symptomsconsist ent with COVID-19.This t est detects both vi able andnon-viable S ARS-CoV and SARS CoV-2. Test performance dep endson the amount of virus (antigen) in the sample." CBC (HEMOGRAM ONLY)2017-08-07 10:43:00 Test Item Value Reference Range Interpretation Comments WHITE BLOOD CELL COUNT (BEAKER) 9.0 K/ L 3.5-10.5 (test code = 775) RED BLOOD CELL COUNT (BEAKER) 3.85 M/ L 3.93-5.22 L (test code = 761) HEMOGLOBIN (BEAKER) (test code = 11.8 GM/DL 11.2-15.7 410) HEMATOCRIT (BEAKER) (test code = 36.2 % 34.1-44.9 411) MEAN CORPUSCULAR VOLUME (BEAKER) 94.0 fL 79.4-94.8 (test code = 753) MEAN CORPUSCULAR HEMOGLOBIN 30.6 pg 25.6-32.2 (BEAKER) (test code = 751) MEAN CORPUSCULAR HEMOGLOBIN CONC 32.6 GM/DL 32.2-35.5 (BEAKER) (test code = 752) RED CELL DISTRIBUTION WIDTH 13.2 % 11.7-14.4 (BEAKER) (test code = 412) PLATELET COUNT (BEAKER) (test 319 K/CU MM 150-450 code = 756) MEAN PLATELET VOLUME (BEAKER) 9.4 fL 9.4-12.3 (test code = 754) NUCLEATED RED BLOOD CELLS 0 /100 WBC 0-0 (BEAKER) (test code = 413) [id number] 05:05:00 Test Item Value Reference Range Interpretation Comments MAGNESIUM (BEAKER) (test code = 1.9 mg/dL 1.6-2.6 627) BASIC METABOLIC [id number] 05:05:00 Test Item Value Reference Range Interpretation Comments SODIUM (BEAKER) 139 meq/L 136-145 (test code = 381) POTASSIUM (BEAKER) 3.8 meq/L 3.5-5.1 (test code = 379) CHLORIDE (BEAKER) 110 meq/L 98-107 H (test code = 382) CO2 (BEAKER) (test 23 meq/L 22-29 code = 355) BLOOD UREA NITROGEN 15 mg/dL 7-21 (BEAKER) (test code = 354) CREATININE (BEAKER) 0.66 mg/dL 0.57-1.25 (test code = 358) GLUCOSE RANDOM 92 mg/dL 70-105 (BEAKER) (test code = 652) CALCIUM (BEAKER) 8.5 mg/dL 8.4-10.2 (test code = 697) EGFR (BEAKER) (test 92 mL/min/1.73 ESTIMA HAYES GFR IS code = 1092) sq m NOT ACCURATE CREATININE CLEARANCE IN PREDICTING GLOMERULAR FILTRATION RATE . ESTIMATED GFR I S NOT APPLICABLE FOR DIALYSIS PATIEN TS. CBC (HEMOGRAM ONLY)2017-08-07 04:31:00 Test Item Value Reference Range Interpretation Comments WHITE BLOOD CELL COUNT (BEAKER) 8.1 K/ L 3.5-10.5 (test code = 775) RED BLOOD CELL COUNT (BEAKER) 3.82 M/ L 3.93-5.22 L (test code = 761) HEMOGLOBIN (BEAKER) (test code = 11.5 GM/DL 11.2-15.7 410) HEMATOCRIT (BEAKER) (test code = 36.2 % 34.1-44.9 411) MEAN CORPUSCULAR VOLUME (BEAKER) 94.8 fL 79.4-94.8 (test code = 753) MEAN CORPUSCULAR HEMOGLOBIN 30.1 pg 25.6-32.2 (BEAKER) (test code = 751) MEAN CORPUSCULAR HEMOGLOBIN CONC 31.8 GM/DL 32.2-35.5 L (BEAKER) (test code = 752) RED CELL DISTRIBUTION WIDTH 13.1 % 11.7-14.4 (BEAKER) (test code = 412) PLATELET COUNT (BEAKER) (test 312 K/CU MM 150-450 code = 756) MEAN PLATELET VOLUME (BEAKER) 9.3 fL 9.4-12.3 L (test code = 754) NUCLEATED RED BLOOD CELLS 0 /100 WBC 0-0 (BEAKER) (test code = 413) [id number] 19:27:00 Test Item Value Reference Range Interpretation Comments ACTIVATED CLOTTING TIME 406 sec TEST ED AT [facility] 6720 (BEAKER) (test code = PRASHANTH Bullard [facility] 441) [id number] TROPONIN [id number] 11:56:00 Test Item Value Reference Range Interpretation Comments TROPONIN I (BEAKER) (test code = 0.56 ng/mL 0.00-0.03 397) Troponin I (TnI) levels must be interpreted [...] and persistent tachyarrhythmia.CREATINE KINASE (CK), TOTAL AND MB 2017-08-06 11:52:00 Test Item Value Reference Range Interpretation Comments CREATINE KINASE TOTAL (BEAKER) 78 U/L 29-200 (test code = 380) CREATINE KINASE-MB (BEAKER) (test 7.6 ng/mL 0.0-6.6 H code = 750) CREATINE KINASE-MB INDEX (BEAKER) 9.7 % (test code = 395) CK-MB Reference Range:<6.7 Normal6.7-10.0 Borderline>10.0 AbnormalAPTT 2017-08-06 11:51:00 Test Item Value Reference Range Interpretation Comments PARTIAL THROMBOPLASTIN TIME 53.4 seconds 22.5-36.0 H (BEAKER) (test code = 760) HEMOGLOBIN [id number] 10:51:00 Test Item Value Reference Range Interpretation Comments HEMOGLOBIN A1C (BEAKER) (test code = 6.2 % 4.3-6.1 H 368) TSH/FREE T4 IF [id number] 05:12:00 Test Item Value Reference Range Interpretation Comments THYROID STIMULATING HORMONE 2.86 uIU/mL 0.35-4.94 (BEAKER) (test code = 772) TROPONIN [id number] 05:08:00 Test Item Value Reference Range Interpretation Comments TROPONIN I (BEAKER) (test code = 0.74 ng/mL 0.00-0.03 HH 397) Troponin I (TnI) levels must be interpreted [...] and persistent tachyarrhythmia.CREATINE KINASE (CK), TOTAL AND MB 2017-08-06 04:46:00 Test Item Value Reference Range Interpretation Comments CREATINE KINASE TOTAL (BEAKER) 90 U/L 29-200 (test code = 380) CREATINE KINASE-MB (BEAKER) (test 10.2 ng/mL 0.0-6.6 H code = 750) CREATINE KINASE-MB INDEX (BEAKER) 11.3 % (test code = 395) CK-MB Reference Range:<6.7 Normal6.7-10.0 Borderline>10.0 Abnormal [id number] 04:40:00 Test Item Value Reference Range Interpretation Comments MAGNESIUM (BEAKER) (test code = 2.0 mg/dL 1.6-2.6 627) BASIC METABOLIC [id number] 04:40:00 Test Item Value Reference Range Interpretation Comments SODIUM (BEAKER) 140 meq/L 136-145 (test code = 381) POTASSIUM (BEAKER) 3.9 meq/L 3.5-5.1 (test code = 379) CHLORIDE (BEAKER) 108 meq/L 98-107 H (test code = 382) CO2 (BEAKER) (test 23 meq/L 22-29 code = 355) BLOOD UREA NITROGEN 16 mg/dL 7-21 (BEAKER) (test code = 354) CREATININE (BEAKER) 0.74 mg/dL 0.57-1.25 (test code = 358) GLUCOSE RANDOM 100 mg/dL 70-105 (BEAKER) (test code = 652) CALCIUM (BEAKER) 9.2 mg/dL 8.4-10.2 (test code = 697) EGFR (BEAKER) (test 80 mL/min/1.73 ESTIMA HAYES GFR IS code = 1092) sq m NOT ACCURATE CREATININE CLEARANCE IN PREDICTING GLOMERULAR FILTRATION RATE . ESTIMATED GFR I S NOT APPLICABLE FOR DIALYSIS PATIEN TS. [id number] 04:31:00 Test Item Value Reference Range Interpretation Comments PARTIAL THROMBOPLASTIN TIME 45.2 seconds 22.5-36.0 H (BEAKER) (test code = 760) CBC (HEMOGRAM ONLY)2017-08-06 04:27:00 Test Item Value Reference Range Interpretation Comments WHITE BLOOD CELL COUNT (BEAKER) 10.3 K/ L 3.5-10.5 (test code = 775) RED BLOOD CELL COUNT (BEAKER) 4.37 M/ L 3.93-5.22 (test code = 761) HEMOGLOBIN (BEAKER) (test code = 13.5 GM/DL 11.2-15.7 410) HEMATOCRIT (BEAKER) (test code = 41.0 % 34.1-44.9 411) MEAN CORPUSCULAR VOLUME (BEAKER) 93.8 fL 79.4-94.8 (test code = 753) MEAN CORPUSCULAR HEMOGLOBIN 30.9 pg 25.6-32.2 (BEAKER) (test code = 751) MEAN CORPUSCULAR HEMOGLOBIN CONC 32.9 GM/DL 32.2-35.5 (BEAKER) (test code = 752) RED CELL DISTRIBUTION WIDTH 13.2 % 11.7-14.4 (BEAKER) (test code = 412) PLATELET COUNT (BEAKER) (test 362 K/CU MM 150-450 code = 756) MEAN PLATELET VOLUME (BEAKER) 9.2 fL 9.4-12.3 L (test code = 754) NUCLEATED RED BLOOD CELLS 0 /100 WBC 0-0 (BEAKER) (test code = 413) URINALYSIS W/ REFLEX URINE [id number] 00:07:00 Test Item Value Reference Range Interpretation Comments COLOR (BEAKER) (test code = 470) Yellow CLARITY (BEAKER) (test code = 469) Clear SPECIFIC GRAVITY UA (BEAKER) (test 1.014 1.001-1.035 code = 468) PH UA (BEAKER) (test code = 467) 5.5 5.0-8.0 PROTEIN UA (BEAKER) (test code = Negative Negative 464) GLUCOSE UA (BEAKER) (test code = Negative Negative 365) KETONES UA (BEAKER) (test code = Negative Negative 371) BILIRUBIN UA (BEAKER) (test code = Negative Negative 462) BLOOD UA (BEAKER) (test code = Negative Negative 461) NITRITE UA (BEAKER) (test code = Negative Negative 465) LEUKOCYTE ESTERASE UA (BEAKER) Negative Negative (test code = 466) UROBILINOGEN UA (BEAKER) (test 0.2 mg/dL 0.2-1.0 code = 463) RBC UA (BEAKER) (test code = 519) 1 /HPF WBC UA (BEAKER) (test code = 520) < /HPF BACTERIA (BEAKER) (test code = Rare 517) MUCUS (BEAKER) (test code = 1574) Occasional SQUAMOUS EPITHELIAL (BEAKER) (test < /HPF code = 516) AMORPHOUS CRYSTALS (BEAKER) (test Rare code = 1584) SOURCE(BEAKER) (test code = 5375) TROPONIN [id number] 22:06:00 Test Item Value Reference Range Interpretation Comments TROPONIN I (BEAKER) (test code = 0.86 ng/mL 0.00-0.03 HH 397) Troponin I (TnI) levels must be interpreted [...] and persistent tachyarrhythmia.CREATINE KINASE (CK), TOTAL AND MB 2017-08-05 22:04:00 Test Item Value Reference Range Interpretation Comments CREATINE KINASE TOTAL (BEAKER) 103 U/L 29-200 (test code = 380) CREATINE KINASE-MB (BEAKER) (test 12.0 ng/mL 0.0-6.6 H code = 750) CREATINE KINASE-MB INDEX (BEAKER) 11.7 % (test code = 395) CK-MB Reference Range:<6.7 Normal6.7-10.0 Borderline>10.0 Abnormal [id number] 21:58:00 Test Item Value Reference Range Interpretation Comments PHOSPHORUS (BEAKER) (test code = 3.0 mg/dL 2.3-4.7 604) [id number] 21:58:00 Test Item Value Reference Range Interpretation Comments MAGNESIUM (BEAKER) (test code = 2.2 mg/dL 1.6-2.6 627) COMPREHENSIVE METABOLIC [id number] 21:58:00 Test Item Value Reference Range Interpretation Comments TOTAL PROTEIN 7.5 gm/dL 6.0-8.3 (BEAKER) (test code = 770) ALBUMIN (BEAKER) 3.9 g/dL 3.5-5.0 (test code = 1145) ALKALINE PHOSPHATASE 80 U/L 40-150 (BEAKER) (test code = 346) BILIRUBIN TOTAL 0.4 mg/dL 0.2-1.2 (BEAKER) (test code = 377) SODIUM (BEAKER) (test 138 meq/L 136-145 code = 381) POTASSIUM (BEAKER) 4.0 meq/L 3.5-5.1 (test code = 379) CHLORIDE (BEAKER) 106 meq/L 98-107 (test code = 382) CO2 (BEAKER) (test 22 meq/L 22-29 code = 355) BLOOD UREA NITROGEN 11 mg/dL 7-21 (BEAKER) (test code = 354) CREATININE (BEAKER) 0.73 mg/dL 0.57-1.25 (test code = 358) GLUCOSE RANDOM 123 mg/dL 70-105 H (BEAKER) (test code = 652) CALCIUM (BEAKER) 9.7 mg/dL 8.4-10.2 (test code = 697) AST (SGOT) (BEAKER) 19 U/L 5-34 (test code = 353) ALT (SGPT) (BEAKER) 16 U/L 6-55 (test code = 347) EGFR (BEAKER) (test 82 mL/min/1.73 ESTIMA HAYES GFR IS code = 1092) sq m NOT ACCURATE CREATININE CLEARANCE IN PREDICTING GLOMERULAR FILTRATION RATE . ESTIMATED GFR I S NOT APPLICABLE FOR DIALYSIS PATIEN TS. BASIC METABOLIC [id number] 21:58:00 Test Item Value Reference Range Interpretation Comments SODIUM (BEAKER) 138 meq/L 136-145 (test code = 381) POTASSIUM (BEAKER) 4.0 meq/L 3.5-5.1 (test code = 379) CHLORIDE (BEAKER) 106 meq/L 98-107 (test code = 382) CO2 (BEAKER) (test 22 meq/L 22-29 code = 355) BLOOD UREA NITROGEN 11 mg/dL 7-21 (BEAKER) (test code = 354) CREATININE (BEAKER) 0.73 mg/dL 0.57-1.25 (test code = 358) GLUCOSE RANDOM 123 mg/dL 70-105 H (BEAKER) (test code = 652) CALCIUM (BEAKER) 9.7 mg/dL 8.4-10.2 (test code = 697) EGFR (BEAKER) (test 82 mL/min/1.73 ESTIMA HAYES GFR IS code = 1092) sq m NOT ACCURATE CREATININE CLEARANCE IN PREDICTING GLOMERULAR FILTRATION RATE . ESTIMATED GFR I S NOT APPLICABLE FOR DIALYSIS PATIEN TS. PROTHROMBIN [id number] 21:54:00 Test Item Value Reference Range Interpretation Comments PROTIME (BEAKER) (test code = 12.9 seconds 11.7-14.7 759) INR (BEAKER) (test code = 370) 1.0 <=5.9 RECOMMENDED COUMADIN/WARFARIN INR THERAPY RANGESSTANDARD DOSE: 2.0 - 3.0 Includes: PROPHYLAXIS for venous thrombosis, systemic embolization; TREATMENT for venous thrombosis and/or pulmonary embolus.HIGH RISK: Target INR is 2.5-3.5 for patients with mechanical heart valves.Within 24 hours, if on CoumadinAPTT 2017-08-05 21:54:00 Test Item Value Reference Range Interpretation Comments PARTIAL THROMBOPLASTIN TIME 32.5 seconds 22.5-36.0 (BEAKER) (test code = 760) Within 24 hours, if on CoumadinCBC W/PLT COUNT & AUTO [id number] 21:45:00 Test Item Value Reference Range Interpretation Comments WHITE BLOOD CELL COUNT (BEAKER) 12.5 K/ L 3.5-10.5 H (test code = 775) RED BLOOD CELL COUNT (BEAKER) 4.68 M/ L 3.93-5.22 (test code = 761) HEMOGLOBIN (BEAKER) (test code = 14.4 GM/DL 11.2-15.7 410) HEMATOCRIT (BEAKER) (test code = 43.5 % 34.1-44.9 411) MEAN CORPUSCULAR VOLUME (BEAKER) 92.9 fL 79.4-94.8 (test code = 753) MEAN CORPUSCULAR HEMOGLOBIN 30.8 pg 25.6-32.2 (BEAKER) (test code = 751) MEAN CORPUSCULAR HEMOGLOBIN CONC 33.1 GM/DL 32.2-35.5 (BEAKER) (test code = 752) RED CELL DISTRIBUTION WIDTH 13.2 % 11.7-14.4 (BEAKER) (test code = 412) PLATELET COUNT (BEAKER) (test 401 K/CU MM 150-450 code = 756) MEAN PLATELET VOLUME (BEAKER) 9.2 fL 9.4-12.3 L (test code = 754) NUCLEATED RED BLOOD CELLS 0 /100 WBC 0-0 (BEAKER) (test code = 413) NEUTROPHILS RELATIVE PERCENT 70 % (BEAKER) (test code = 429) LYMPHOCYTES RELATIVE PERCENT 22 % (BEAKER) (test code = 430) MONOCYTES RELATIVE PERCENT 6 % (BEAKER) (test code = 431) EOSINOPHILS RELATIVE PERCENT 2 % (BEAKER) (test code = 432) BASOPHILS RELATIVE PERCENT 0 % (BEAKER) (test code = 437) NEUTROPHILS ABSOLUTE COUNT 8.72 K/ L 1.56-6.13 H (BEAKER) (test code = 670) LYMPHOCYTES ABSOLUTE COUNT 2.71 K/ L 1.18-3.74 (BEAKER) (test code = 414) MONOCYTES ABSOLUTE COUNT (BEAKER) 0.79 K/ L 0.24-0.36 H (test code = 415) EOSINOPHILS ABSOLUTE COUNT 0.21 K/ L 0.04-0.36 (BEAKER) (test code = 416) BASOPHILS ABSOLUTE COUNT (BEAKER) 0.05 K/ L 0.01-0.08 (test code = 417) IMMATURE GRANULOCYTES-RELATIVE 0 % 0-1 PERCENT (BEAKER) (test code = 2801) CBC (HEMOGRAM ONLY)2017-08-05 21:42:00 Test Item Value Reference Range Interpretation Comments WHITE BLOOD CELL COUNT (BEAKER) 12.5 K/ L 3.5-10.5 H (test code = 775) RED BLOOD CELL COUNT (BEAKER) 4.68 M/ L 3.93-5.22 (test code = 761) HEMOGLOBIN (BEAKER) (test code = 14.4 GM/DL 11.2-15.7 410) HEMATOCRIT (BEAKER) (test code = 43.5 % 34.1-44.9 411) MEAN CORPUSCULAR VOLUME (BEAKER) 92.9 fL 79.4-94.8 (test code = 753) MEAN CORPUSCULAR HEMOGLOBIN 30.8 pg 25.6-32.2 (BEAKER) (test code = 751) MEAN CORPUSCULAR HEMOGLOBIN CONC 33.1 GM/DL 32.2-35.5 (BEAKER) (test code = 752) RED CELL DISTRIBUTION WIDTH 13.2 % 11.7-14.4 (BEAKER) (test code = 412) PLATELET COUNT (BEAKER) (test 401 K/CU MM 150-450 code = 756) MEAN PLATELET VOLUME (BEAKER) 9.2 fL 9.4-12.3 L (test code = 754) NUCLEATED RED BLOOD CELLS 0 /100 WBC 0-0 (BEAKER) (test code = 413) Notes Date/Time Note Provider Source 2021-01-07 10:03:00-00:00 [id number] [address] PATIENT NAME: DEANNE LOPEZ ADMIT DATE: ACCOUNT NO: [id number] ROOM NO: AGE: 65 REPORT TYPE: ELECTROCARDIOGRAM SEX: F ADMITTING PHYSICIAN: ATTENDING PHYSICIAN:Ally Hughes MD Order: [id number] Test Reason : CAD Test Date/Time Stamp: SatJan 07 2021 10:03:23 Blood Pressure : / mmHG Vent. Rate : 060 BPM Atrial Rate : 060 BPM P-R Int : 160 ms QRS Dur : 082 ms QT Int : 442 ms P-R-T Axes : 052 046 043 degree s QTc Int : 442 ms Normal sinus rhythm Normal ECG When compared with ECG of 07-JAN-2021 07:10, No significant change was found Confirmed by ALLY HUGHES ([id number]) on 01/07/2021 12:41:54 PM Referred By: Ally Hughes Confirmed by:ALLY CABAN at [id number] PATIENT NAME: DEANNE LOPEZ ACCOUNT #: [id number] 2021-01-07 09:16:00-00:00 [id number] [address] PATIENT NAME: DEANNE LOPEZ ADMIT DATE: ACCOUNT NO: [id number] ROOM NO: AGE: 65 REPORT TYPE: CARDIAC CATHETERIZATION REPORT SEX: F ADMITTING PHYSICIAN: ATTENDING PHYSICIAN:Ally Hughes MD PROCEDURE DATE: 01/07/2021 CARDIOLOGY PROCEDURE GUN STRIPER: Ally Hughes MD TITLES OF THE PROCEDURE: 1. Left heart catheterization. 2. IFR and FFR of the circumflex artery. 3. Sealing device. ESTIMATED BLOOD LOSS: Minimal. COMPLICATIONS: None. CONTRAST: 85 mL. ANESTHESIA: Conscious sedation with Versed and f entanyl and 1% lidocaine for local anesthesia. FINAL DIAGNOSES: Single-vess el coronary artery disease, patent stent, eccentric 60% proximal to mid circumflex lesion with an IF R of 0.92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
[2023-03-29 19:14] LABS: Absolute Lymphocytes (CBC) 2.2 K/uL (0.7-4.9); Hematocrit 43.6 % (36.0-45.0); Lymphocytes % 26.3 % (15.3-44.8); MCV 93.4 fL (80-100); MPV 7.4 fL (7.6-11.3); RBC Red Blood Cell Count 4.67 M/uL (3.86-4.86)
[2023-03-29 19:16] LABS: Specific Gravity 1.011 (1.005-1.030); Urine Bacteria <20 /HPF (<20); Urine Bilirubin NEGATIVE (Negative); Urine Blood Trace (Negative); Urine Clarity Clear (Clear); Urine Color Light-Yellow (Yellow); Urine Glucose NEGATIVE (Negative); Urine Mucus Slight /HPF (None Seen); Urine Protein TRACE (Negative); Urine RBC <5 /HPF (None Seen); Urine Urobilinogen Normal (Normal); Urine pH 6.5 (5.0-7.0)
[2023-03-29 19:36] LABS: Albumin 3.6 g/dL (3.4-5.0); Bilirubin Total 0.4 mg/dL (0.2-1.0); Protein, Total 8.1 g/dL (6.4-8.2)
[2023-03-29] MEDS ORDERED: FAMOTIDINE 20 MG/2 ML VIAL IV ONE (20:08)
[2023-03-29] MEDS ORDERED: ONDANSETRON 4 MG/2 ML VIAL ONE (20:08)
[2023-03-29] MEDS ORDERED: NA CHLORIDE 0.9% 1,000 ML ONE (20:08)
--- NOTE | 2023-03-29 20:30 | RAD REPORT ---
EXAM DESCRIPTION: US - Abdomen Exam Limited - 03/29/2023 8:18 pm CLINICAL HISTORY: ABD PAIN COMPARISON: Stone Protocol dated 09/14/2019 TECHNIQUE: Sonographic grayscale and color flow images of the right upper abdominal quadrant were obtained. FINDINGS: The gallbladder demonstrates no gallstones. Small amount of layering sludge near the neck. No pericholecystic fluid or gallbladder wall thickening. The common bile duct is normal measuring 4 mm. The liver demonstrates no findings of intrahepatic biliary dilatation. IMPRESSION: Small amount of layering sludge near the gallbladder neck. No other findings of concern on right upper quadrant ultrasound.
--- NOTE | 2023-03-29 21:18 | RAD REPORT ---
EXAM DESCRIPTION: CT - Chest Abdomen Pelvis W Cont - 03/29/2023 8:53 pm CLINICAL HISTORY: Chest and abdomen pain. COMPARISON: Thorax W/Wo Con dated 08/31/2021 TECHNIQUE: Thin axial CT images of the chest, abdomen, and pelvis, performed following intravenous a dministration of 100 mL Isovue-300. Multiplanar reformats were generated and reviewed. All CT scans are performed using dose optimization technique as appropriate and may include automated exposure control or mA/KV adjustment according to patient size. FINDINGS: A new anterior left upper lobe mildly spiculated 1.3 centimeter nodule (axial image 17/ 12 3) is noted. Interval increase in size of a subpleural medial left apical nodule, now measuring 9 mil limeter, as seen on axial image 11, previously measured 6 millimeter. Interval increase in size of a peribronchovascular upper lobe nodule on axial image 14 now measuring 7 millimeter, previously measur ed 3 millimeter. 5 millimeter right apical nodule on axial image 11 also appears to be new No pleural or pericardial effusion.No intrathoracic adenopathy. The liver, spleen, pancreas, adrenal glands and gallbladder are within normal limits. Left renal nono bstructing calculi, the largest at the midpole measuring 8 millimeter. No bowel obstruction, free air, free fluid or abscess. Normal appendix. No pathologic lymphadenopath y in the abdomen or pelvis. No worrisome osseous finding. IMPRESSION: New and enlarging bilateral pulmonary nodules as above, with spiculated appearance of do minant left upper lobe nodule, raising concern for malignancy. Given multiplicity, other possibilitie s such as an infectious/ granulomatous etiology, as well as metastatic nodules are on the list of dif ferential considerations.Additional evaluation by PET-CT may be helpful. Nonobstructing left renal calculi. No other acute abnormality in the abdomen and pelvis. No suspicious osseous lesions.
--- NOTE | 2023-03-29 21:27 | ER ---
Nurse's Notes [facility] Name: Carissa Ewing Age: 67 yrs Sex: Female : 1955 Arrival Date: 03/29/2023 Time: 18:35 Bed 19 Private MD: Diagnosis: Lung nodules;Abdominal pain, Generalized Presentation: 03/29 18:44 Chief complaint: Patient states: abd pain and decreased appetite that began Saturday. ss Coronavirus screen: Client denies travel out of the [place] in the last 14 days. Ebola Screen: Patient denies exposure to infectious person. Patient denies travel to an Ebola-affected area in the 21 days before illness onset. Initial Sepsis Screen: Does the patient meet any 2 criteria? No. Patient's initial sepsis screen is negative. Does the patient have a suspected source of infection? No. Patient's initial sepsis screen is negative. Risk Assessment: Do you want to hurt yourself or someone else? Patient reports no desire to harm self or others. Onset of symptoms was March 25, 2023. 18:44 Method Of Arrival: Ambulatory ss 18:44 Acuity: SWAPNA 3 ss Historical: - Allergies: 18:45 No Known Allergies; ss - PMHx: 18:45 Hypertension; Diabetes mellitus; Osteoporosis; ss - Immunization history:: Client reports having NOT received the Covid vaccine. - Social history:: Smoking status: Patient reports the use of cigarette tobacco products, smokes one-half pack cigarettes per day. Screenin:30 [facility] ED Fall Risk Assessment (Adult) History of falling in the last 3 months, ha1 including since admission No falls in past 3 months (0 pts) Confusion or Disorientation No (0 pts) Intoxicated or Sedated No (0 pts) Impaired Gait No (0 pts) Mobility Assist Device Used No (0 pt) Altered Elimination No (0 pt) Score/Fall Risk Level 0 - 2 = Low Risk Oriented to surroundings, Maintained a safe environment, Educated pt \T\ family on fall prevention, incl call for assistance when getting out of bed. 21:16 Abuse screen: Denies threats or abuse. Denies injuries from another. Nutritional ha1 screening: No deficits noted. Tuberculosis screening: No symptoms or risk factors identified. Assessment: 19:30 General: Appears uncomfortable, Behavior is calm, cooperative. Pain: Complains of pain ha1 in right upper quadrant Pain does not radiate. Pain currently is 5 out of 10 on a pain scale. Pain began gradually. Neuro: Level of Consciousness is awake, alert, obeys commands, Oriented to person, place, time, situation. Cardiovascular: Patient's skin is warm and dry. Respiratory: Airway is patent Respiratory effort is even, unlabored, Respiratory pattern is regular, symmetrical. GI: Abdomen is flat, non-distended, Bowel sounds present X 4 quads. Abd is soft and non tender X 4 quads. Reports nausea. : No signs and/or symptoms were reported regarding the genitourinary system. Derm: Skin is pink, warm \T\ dry. Musculoskeletal: Circulation, motion, and sensation intact. Range of motion: intact in all extremities. 20:25 Reassessment: Patient and/or family updated on plan of care and expected duration. Pain ha1 level reassessed. Patient is alert, oriented x 3, equal unlabored respirations, skin warm/dry/pink. 21:09 Reassessment: Patient and/or family updated on plan of care and expected duration. Pain ha1 level reassessed. Patient is alert, oriented x 3, equal unlabored respirations, skin warm/dry/pink. 22:01 Reassessment: Patient and/or family updated on plan of care and expected duration. Pain ha1 level reassessed. Patient is alert, oriented x 3, equal unlabored respirations, skin warm/dry/pink. Patient denies pain at this time. Patient states feeling better. Patient states symptoms have improved. Vital Signs: 18:44 BP 151 / 88; Pulse 81; Resp 16; Temp 98.1(O); Pulse Ox 100% on R/A; Weight 50.35 kg; ss Height 4 ft. 10 in. ; Pain 7/10; 19:30 BP 128 / 65; Pulse 98; Resp 18 S; Pulse Ox 98% ; ha1 20:25 BP 127 / 63; Pulse 86; Resp 18 S; Pulse Ox 100% on R/A; ha1 21:25 BP 120 / 64; Pulse 85; Resp 18 S; Pulse Ox 98% on R/A; ha1 18:44 Body Mass Index 23.20 (50.35 kg, 147.32 cm) 18:44 Pain Scale: Adult ED Course: 18:36 Patient arrived in ED. rg4 18:36 Russel Garcia MD is Attending Physician. bs3 18:40 Izabella Smith FNP-C is [facility]. kb 18:45 Triage completed. ss 18:45 Arm band placed on right wrist. ss 18:59 Inserted saline lock: 22 gauge in right antecubital area, using aseptic technique. tm3 19:04 by ED staff, sent to lab. Urine collected: clean catch specimen, clear. tm3 19:30 Patient has correct armband on for positive identification. Placed in gown. Bed in low ha1 position. Call light in reach. Side rails up X 1. 19:52 Nichole Rivers, BRITNI is Primary Nurse. ha1 20:20 Abdomen Limited US In Process Unspecified. EDMS 20:55 Chest Abdomen Pelvis W Cont In Process Unspecified. EDMS 22:03 No provider procedures requiring assistance completed. IV discontinued, intact, ha1 bleeding controlled, No redness/swelling at site. Pressure dressing applied. Administered Medications: 20:00 Drug: Famotidine IVP 20 mg Route: IVP; Site: right antecubital; ha1 20:30 Follow up: Response: No adverse reaction; Nausea is decreased ha1 20:03 Drug: NS 0.9% IV 1000 ml Route: IV; Rate: 1 bolus; Site: right antecubital; ha1 22:03 Follow up: Response: No adverse reaction; IV Status: Completed infusion; IV Intake: ha1 1000ml 20:03 Drug: Ondansetron IVP 4 mg Route: IVP; Site: right antecubital; ha1 20:30 Follow up: Response: No adverse reaction; Nausea is decreased ha1 Medication: 22:03 VIS not applicable for this client. ha1 Intake: 22:03 IV: 1000ml; Total: 1000ml. ha1 Outcome: 21:27 Discharge ordered by . kb 22:03 Discharged to home ambulatory, with family. ha1 22:03 Condition: stable 22:03 Discharge instructions given to patient, family, Instructed on discharge instructions, follow up and referral plans. medication usage, Demonstrated understanding of instructions, follow-up care, medications, Prescriptions given X 2. 22:04 Patient left the ED. ha1 Signatures: Dispatcher [employer] EDMS Izabella Smith FNP-C FNP-Collins Cano tm3 Yue Craig, BRITNI RN ss Tamar Dwyer rg4 Nichole Rivers RN RN ha1 Russel Garcia MD MD bs3 Corrections: (The following items were deleted from the chart) 20:26 20:00 Ondansetron IVP 4 mg IVP in right antecubital ha1 ha1
--- NOTE | 2023-03-29 21:27 | EDPHYS ---
Physician Documentation [facility] Name: Carissa Ewing Age: 67 yrs Sex: Female : 1955 Arrival Date: 03/29/2023 Time: 18:35 Bed 19 Private MD: ED Physician Russel Garcia HPI: 03/29 20:54 This 67 yrs old Female presents to ER via Ambulatory with complaints of Abdominal Pain, kb Decreased Appetite. 20:54 The patient presents with abdominal pain that is diffuse. Onset: The symptoms/episode kb began/occurred 4 day(s) ago. The symptoms do not radiate. Associated signs and symptoms: Pertinent positives: nausea, Pertinent negatives: constipation, diarrhea, fever, vomiting. The symptoms are described as constant. Modifying factors: The symptoms are alleviated by nothing, the symptoms are aggravated by nothing. Severity of pain: At its worst the pain was moderate in the emergency department the pain is unchanged. The patient has not experienced similar symptoms in the past. The patient has not recently seen a physician. Historical: - Allergies: 18:45 No Known Allergies; ss - PMHx: 18:45 Hypertension; Diabetes mellitus; Osteoporosis; ss - Immunization history:: Client reports having NOT received the Covid vaccine. - Social history:: Smoking status: Patient reports the use of cigarette tobacco products, smokes one-half pack cigarettes per day. ROS: 20:53 Respiratory: Negative for shortness of breath, cough, wheezing, and pleuritic chest kb pain. 20:53 Constitutional: Positive for poor PO intake. 20:53 Abdomen/GI: Positive for abdominal pain, nausea. 20:53 All other systems are negative. Exam: 20:53 Constitutional: This is a well developed, well nourished patient who is awake, alert, kb and in no acute distress. Head/Face: Normocephalic, atraumatic. ENT: Moist Mucous membranes Cardiovascular: Regular rate and rhythm with a normal S1 and S2. No gallops, murmurs, or rubs. No pulse deficits. Respiratory: Respirations even and unlabored. No increased work of breathing. Talking in full sentences Skin: Warm, dry with normal turgor. Normal color. MS/ Extremity: Pulses equal, no cyanosis. Neurovascular intact. Full, normal range of motion. Neuro: Awake and alert, GCS 15, oriented to person, place, time, and situation. Moves all extremities. Normal gait. 20:53 Abdomen/GI: Inspection: abdomen appears normal, Bowel sounds: normal, Palpation: soft, in all quadrants, mild abdominal tenderness, in the right upper quadrant. Vital Signs: 18:44 BP 151 / 88; Pulse 81; Resp 16; Temp 98.1(O); Pulse Ox 100% on R/A; Weight 50.35 kg; ss Height 4 ft. 10 in. ; Pain 7/10; 19:30 BP 128 / 65; Pulse 98; Resp 18 S; Pulse Ox 98% ; ha1 20:25 BP 127 / 63; Pulse 86; Resp 18 S; Pulse Ox 100% on R/A; ha1 21:25 BP 120 / 64; Pulse 85; Resp 18 S; Pulse Ox 98% on R/A; ha1 18:44 Body Mass Index 23.20 (50.35 kg, 147.32 cm) ss 18:44 Pain Scale: Adult ss MDM: 18:36 Patient medically screened. bs3 20:54 Differential diagnosis: cholecystitis, Cholelithiasis, gastritis, gastroesophageal kb reflux disease, non-specific abd pain, pancreatitis. Data reviewed: vital signs, nurses notes. 21:21 Counseling: I had a detailed discussion with the patient and/or guardian regarding: the kb historical points, exam findings, and any diagnostic results supporting the discharge/admit diagnosis, lab results, radiology results, the need for outpatient follow up, a family practitioner, a ship harbor pilot, to return to the emergency department if symptoms worsen or persist or if there are any questions or concerns that arise at home. ED course: Pt had requested the CT include her chest to evaluate previously diagnosed nodules. Discussed diagnostic results with pt including new nodule finding and increase in size of previously reported nodules. Pt will follow up with Dr Mccullough. Pt understands possible malignancy and need for prompt follow up . 03/29 18:43 Order name: CBC with Diff; Complete Time: 19:32 kb 03/29 18:43 Order name: CMP; Complete Time: 19:52 kb 03/29 18:43 Order name: Lipase; Complete Time: 19:52 kb 03/29 18:43 Order name: Urinalysis w/ reflexes; Complete Time: 19:32 kb 03/29 18:43 Order name: Abdomen Limited US; Complete Time: 20:34 kb 03/29 20:46 Order name: Chest Abdomen Pelvis W Cont; Complete Time: 21:21 EDMS 03/29 18:43 Order name: IV Saline Lock; Complete Time: 19:52 kb 03/29 18:43 Order name: Labs collected and sent; Complete Time: 19:52 kb Administered Medications: 20:00 Drug: Famotidine IVP 20 mg Route: IVP; Site: right antecubital; ha1 20:30 Follow up: Response: No adverse reaction; Nausea is decreased ha1 20:03 Drug: NS 0.9% IV 1000 ml Route: IV; Rate: 1 bolus; Site: right antecubital; ha1 22:03 Follow up: Response: No adverse reaction; IV Status: Completed infusion; IV Intake: ha1 1000ml 20:03 Drug: Ondansetron IVP 4 mg Route: IVP; Site: right antecubital; ha1 20:30 Follow up: Response: No adverse reaction; Nausea is decreased ha1 Disposition Summary: 03/29/23 21:27 Discharge Ordered Location: Home kb Condition: Stable kb Diagnosis - Lung nodules kb - Abdominal pain, Generalized kb Followup: kb - With: Emergency Department - When: As needed - Reason: Worsening of condition Followup: kb - With: Private Physician - When: 2 - 3 days - Reason: Recheck today's complaints, Continuance of care, Re-evaluation by your physician Discharge Instructions: - Discharge Summary Sheet kb - Abdominal Pain, Adult, [id number] kb - Lung Mass kb Forms: - Medication Reconciliation Form kb - Thank You Letter kb - Antibiotic Education kb - Prescription Opioid Use kb Prescriptions: - ondansetron 4 mg Oral Tablet,disintegrating - take 1 tablet by ORAL route every 8 hours As needed; 20 tablet; Refills: 0, kb Product Selection Permitted - dicyclomine 20 mg Oral Tablet - take 1 tablet by ORAL route 4 times per day As needed; 20 tablet; Refills: 0, kb Product Selection Permitted Signatures: Dispatcher [employer] Izabella Alejandre, REGINA GARCÍA-Yue London RN RN ss Ayala, Heidy, RN RN ha1 Russel Garcia MD MD bs3 Corrections: (The following items were deleted from the chart) 20:46 20:36 Abdomen Pelvis W Con+CT.RAD.BRZ ordered. EDMS EDMS
[2023-03-29 22:56] VITALS: TEMP 98.1
[2023-03-29 23:09] VITALS: BP 120/64; O2SAT 98
== END 2023-03-29 22:04 | disposition home or self-care (01) ==
LOC: ER 18:35
DX: R91.8 Other nonspecific abnormal finding of lung field (principal); R10.84 Generalized abdominal pain; R11.0 Nausea; F17.210 Nicotine dependence, cigarettes, uncomplicated
CPT/HCPCS: 96361; 85025; 81001; 36415; 83690; 80053; 71260; 74177; 76705; 96375; 96374; 99284; Q9967; J2405; J7030